=== PATIENT | female | born 1980 | race Caucasian/White ===

== ENCOUNTER 2016-11-24 12:16 | Emergency (ER) | payer MEDICAID ==
[~2016-11-24] VITALS: Ht 160 cm; Wt 52.0 kg
[~2016-11-24 12:16] MED LIST: AMOX1TAB12 PO; AMOX875T2 PO; DOCU-243 PO; DULO60CA7 PO; FLUO60TA PO; FLX20C PO; HSCO125 SL; HYDR-3702 PO; HYDR1KIT RC; IBP200T PO; LD2VS20U MT; MAGN400O7 PO; METH10TA5 PO; OXYC1TAB87 PO; PANT40TA3 PO; PRED20TA PO
[2016-11-24] MEDS ORDERED: KETOROLAC 30 MG/ML (TORADOL) 1 ML VIAL IV ONE (12:50)
[2016-11-24] MEDS ORDERED: SODIUM CHLORIDE FLUSH 3 ML SYR IV ONE (12:50)
[2016-11-24] MEDS ORDERED: ONDANSETRON 2 MG/ML (Z0FRAN) 2 ML VIAL IV ONE (12:50)
[2016-11-24] MEDS ORDERED: SODIUM CHLORIDE FLUSH 10 ML SYR IV PRN (12:50)
[2016-11-24] MEDS ORDERED: HYDROmorphone 1 MG/ML (DILAUDID) SYRINGE IV ONE ×2 (12:50→14:05)
[2016-11-24] MEDS ORDERED: NS IV 500 ML 500 ML IV SCH (12:50)
[2016-11-24 13:06] LABS: BASOPHILS % (AUTO) 1 % (0-2); EOSINOPHILS # (AUTO) 0.1 10^3uL; EOSINOPHILS % (AUTO) 1 % (0-4); LYMPHOCYTES # (AUTO) 1.2 X10^3; MEAN CORPUSCULAR HEMOGLOBIN 29.6 PG (26.0-34.0); MEAN CORPUSCULAR HGB CONC 35.4 g/dL (31.0-37.0); MEAN CORPUSCULAR VOLUME 84 FL (80-100); MEAN PLATELET VOLUME 12.2 FL (6.0-9.5); MONOCYTES # (AUTO) 0.7 X10^3; MONOCYTES % (AUTO) 12 % (3-11); NEUTROPHILS % (AUTO) 67 % (51-67); PLATELET COUNT 191 10^3uL (150-450); WHITE BLOOD COUNT 5.99 10^3uL (4.0-11.0)
[2016-11-24 13:08] LABS: BILIRUBIN,URINE Negative (Negative); CLARITY,URINE Clear; COLOR,URINE Yellow; GLUCOSE, URINE (UA) Negative (Negative); LEUKOCYTE ESTERASE ,URINE Negative (Negative); UROBILINOGEN,URINE 0.2 mg/dL (0.2-1.0)
[2016-11-24 13:16] LABS: ALBUMIN 4.5 g/dL (3.4-5.0); ANION GAP 14.8 MEQ/L (3-15)
[2016-11-24 13:18] LABS: AMPHETAMINE SCREEN, URINE Negative (Negative); CANNABINOID SCREEN, URINE Negative (Negative); METHAMPHETAMINE SCREEN URINE S NEGATIVE (NEGATIVE); OPIATE SCREEN URINE Negative (Negative); PROPOXYPHENE STAT NEGATIVE (NEGATIVE)
--- NOTE | 2016-11-24 13:54 | NUR ---
DR CASEY PAGES & NOW TALKS WITH DR Hermelinda SOTO RE PT. CL
--- NOTE | 2016-11-24 14:05 | NUR ---
written order for outpt HIDA scan given to Deyanira, snow maker.
--- NOTE | 2016-11-24 14:06 | Diagnostic Imaging Report ---
INDICATION: Abdominal pain. COMPARISON: Chest x-ray of 08/05/2016. FINDINGS: The lungs are clear. The heart and vessels are normal. There is no effusion or pneumothorax. Supine and upright abdominal films reveal normal bowel caliber. No free air or pneumatosis. No air/fluid levels. Colonic fecal loading is not pathologic. IMPRESSION: No acute appearing abnormality. Dictated by: Dictated on workstation # [id number]
[2016-11-24] MEDS ORDERED: ONDA4TAB8 PO (14:09)
[2016-11-24] MEDS ORDERED: HYDR-3702 PO (14:09)
--- NOTE | 2016-11-24 14:15 | NUR ---
HUSB BACK AT BEDSIDE. CL
[2016-11-24 18:06] VITALS: BP 100/67
[2016-12-20] MEDS ORDERED: CPR500T PO (18:36)
[2016-12-20] MEDS ORDERED: METH5TAB5 PO (18:36)
[2016-12-20] MEDS ORDERED: METR500T17 PO (18:36)
[2017-02-18] MEDS ORDERED: LORA10TA7 PO (17:34)
[2017-02-18] MEDS ORDERED: AMOX875T2 PO (17:34)
== END 2016-11-24 14:43 | disposition home or self-care (01) ==
LOC: ED 12:17
DX: R10.84 Generalized abdominal pain (principal)
CPT/HCPCS: 36415; 74022; 80053; 81003; 82150; 82977; 83690; 85025; 96361; 96374; 96375; 96376; 99283; G0478; J1170; J1885; J2405; J7040; 80307

== ENCOUNTER → 2016-11-25 | Outpatient (CLI) | payer MEDICAID ==
[~2016-11-25] MED LIST changes: +CPR500T PO; +LORA10TA7 PO; +METH5TAB5 PO; +METR500T17 PO; +ONDA4TAB8 PO
--- NOTE | 2016-11-25 10:51 | Diagnostic Imaging Report ---
INDICATION: Biliary colic with nausea and abdominal pain. FINDINGS: The patient was administered 7.9 mCi of Tc 99m Choletec and sequential imaging was performed over the right upper abdomen. There is progressive, homogeneous accumulation of radiotracer within the liver parenchyma. There is filling of the bile ducts and subsequent filling of the gallbladder. There is progressive clearance of activity from the liver parenchyma and accumulation of radiotracer within loops of small bowel. The patient was then administered a fatty meal, utilizing 8 ounces of Ensure. The gallbladder ejection fraction was calculated to be approximately 59%. (Normal values with Ensure are 33% or greater.) IMPRESSION: 1. Hepatobiliary scan demonstrates a patent biliary tree. 2. Normal gallbladder ejection fraction of approximately 59%. Dictated by: Dictated on workstation # [id number]
== END ==
LOC: RAD 07:38
PROVIDERS: ATTEND Family Medicine
DX: K80.50 Calculus of bile duct without cholangitis or cholecystitis without obstruction (principal)
CPT/HCPCS: 78227; A9537; J2805

== ENCOUNTER → 2016-12-08 | Outpatient (CLI) | payer MEDICAID ==
--- NOTE | 2016-12-08 11:30 | Diagnostic Imaging Report ---
CLINICAL INDICATION: Patient has a history of abdominal pain. Nondiabetic. COMPARISON: None. PROCEDURE: Solid Gastric emptying study. TECHNIQUE: After oral ingestion of 1.2 millicuries of technetium 99M sulfur colloid, mixed with two scrambled eggs, sequential imaging of the abdomen was performed. Computer analysis was performed and gastric emptying curves were calculated. FINDINGS: There is gastric emptying demonstrated with sequential imaging. The T 1/2 life is 70 minutes (Normal T1/2 life is 60-90 minutes) which is within normal limits. Of note, 4 hour imaging with radiotracer gastric retention values at one hour time points was not performed on this exam. The 90 minute percent gastric retention of radiotracer was roughly 40%. IMPRESSION: Normal gastric emptying study. Dictated by: Dictated on workstation # [id number]
== END ==
LOC: RAD 08:00
PROVIDERS: ATTEND Internal Medicine Gastroenterology
DX: R10.9 Unspecified abdominal pain (principal)
CPT/HCPCS: 78264; A9541

== ENCOUNTER 2016-12-20 18:00 | Emergency (ER) | payer MEDICAID ==
[~2016-12-20] VITALS: Ht 160 cm; Wt 54.6 kg
[2016-12-20] MEDS ORDERED: SODIUM CHLORIDE FLUSH 10 ML SYR IV PRN (18:45)
[2016-12-20] MEDS ORDERED: KETOROLAC 30 MG/ML (TORADOL) 1 ML VIAL IV ONE (18:45)
[2016-12-20] MEDS ORDERED: ONDANSETRON 2 MG/ML (Z0FRAN) 2 ML VIAL IV ONE (18:45)
[2016-12-20] MEDS ORDERED: SODIUM CHLORIDE FLUSH 3 ML SYR IV ONE (18:45)
[2016-12-20] MEDS ORDERED: HYDROmorphone 1 MG/ML (DILAUDID) SYRINGE IV ONE (18:45)
[2016-12-20 18:57] LABS: BILIRUBIN,URINE Negative (Negative); CLARITY,URINE Clear; COLOR,URINE Yellow; GLUCOSE, URINE (UA) Negative (Negative); LEUKOCYTE ESTERASE ,URINE Negative (Negative); UROBILINOGEN,URINE 0.2 mg/dL (0.2-1.0)
[2016-12-20 18:57] LABS: BASOPHILS % (AUTO) 1 % (0-2); EOSINOPHILS # (AUTO) 0.1 10^3uL; EOSINOPHILS % (AUTO) 2 % (0-4); LYMPHOCYTES # (AUTO) 2.2 X10^3; MEAN CORPUSCULAR HEMOGLOBIN 29.1 PG (26.0-34.0); MEAN CORPUSCULAR HGB CONC 35.2 g/dL (31.0-37.0); MEAN CORPUSCULAR VOLUME 83 FL (80-100); MEAN PLATELET VOLUME 12.6 FL (6.0-9.5); MONOCYTES # (AUTO) 0.7 X10^3; MONOCYTES % (AUTO) 8 % (3-11); NEUTROPHILS # (AUTO) 4.9 X10^3; NEUTROPHILS % (AUTO) 62 % (51-67); PLATELET COUNT 199 10^3uL (150-450)
[2016-12-20 19:08] LABS: ALBUMIN 4.3 g/dL (3.4-5.0); ANION GAP 12.3 MEQ/L (3-15); CALCULATED IONIZED CALCIUM 4.2 mg/dL (3.8-4.6); TOTAL PROTEIN 7.1 g/dL (6.4-8.5)
[2016-12-20 20:25] VITALS: BP 105/65
== END 2016-12-20 20:26 | disposition home or self-care (01) ==
LOC: ED 18:01
DX: R10.84 Generalized abdominal pain (principal)
CPT/HCPCS: 36415; 74177; 80053; 81003; 82150; 83690; 85025; 86140; 96361; 96374; 96375; 99284; J1170; J1885; J2405; J7030; Q9967; 99283

== ENCOUNTER 2016-12-24 21:24 | Emergency (ER) | payer MEDICAID ==
[~2016-12-24] VITALS: Ht 160 cm; Wt 55.3 kg
[2016-12-24] MEDS ORDERED: SODIUM CHLORIDE FLUSH 3 ML SYR IV PRN (22:55)
[2016-12-24] MEDS ORDERED: SODIUM CHLORIDE FLUSH 10 ML SYR IV PRN (22:55)
[2016-12-24] MEDS ORDERED: ONDANSETRON 2 MG/ML (Z0FRAN) 2 ML VIAL IV ONE (22:55)
[2016-12-24] MEDS ORDERED: HYDROmorphone 1 MG/ML (DILAUDID) SYRINGE IV PRN (22:55)
[2016-12-24 23:07] LABS: BASOPHILS % (AUTO) 0 % (0-2); EOSINOPHILS # (AUTO) 0.2 10^3uL; EOSINOPHILS % (AUTO) 2 % (0-4); LYMPHOCYTES # (AUTO) 2.7 X10^3; MEAN CORPUSCULAR HEMOGLOBIN 29.4 PG (26.0-34.0); MEAN CORPUSCULAR VOLUME 83 FL (80-100); MEAN PLATELET VOLUME 13.2 FL (6.0-9.5); MONOCYTES # (AUTO) 0.7 X10^3; MONOCYTES % (AUTO) 8 % (3-11); NEUTROPHILS # (AUTO) 6.1 X10^3; NEUTROPHILS % (AUTO) 63 % (51-67); PLATELET COUNT 212 10^3uL (150-450); WHITE BLOOD COUNT 9.68 10^3uL (4.0-11.0)
[2016-12-24 23:10] LABS: ALBUMIN 4.8 g/dL (3.4-5.0); ANION GAP 16.9 MEQ/L (3-15); CALCULATED IONIZED CALCIUM 4.1 mg/dL (3.8-4.6); TOTAL PROTEIN 7.8 g/dL (6.4-8.5)
[2016-12-24 23:14] LABS: MEAN CORPUSCULAR HGB CONC 35.5 g/dL (31.0-37.0)
--- NOTE | 2016-12-24 23:40 | NUR ---
PT FELT READY TO BE DISCHARGED.
[2016-12-25] VITALS: BP 105/67
== END 2016-12-24 23:50 | disposition home or self-care (01) ==
LOC: ED 21:25
DX: R10.13 Epigastric pain (principal)
CPT/HCPCS: 36415; 80053; 82150; 83690; 85025; 96374; 96375; 99285; J1170; J2405; 99282

== ENCOUNTER → 2017-02-18 | Outpatient (CLI) | payer MEDICAID ==
[2017-02-18 17:35] VITALS: BP 105/64
--- NOTE | 2017-02-18 17:35 | Urgent Care T Sheet Gen (E) ---
Intake General Temperature (Fahrenheit): 98.2 Pulse: 74 Blood Pressure Systolic: 105 Blood Pressure Diastolic: 64 Respirations: 16 SPO2: 99 Chief Complaint: Sore throat Description of Symptoms Complains of sore throat and bilateral ear pain- popping and cracking, feels tired all the time, alot of fatigue. No vomiting, no rashes, hasn't had a physical in a long time, Hysterectomy in 2015- partial, she would like labs done Source: Patient History of Present Illness Onset & Duration: Days Timing: Still present Severity: Mild Associated Symptoms: Cough, Malaise, Nasal congestion, Sinus congestion Recent Trauma: No Allergies: Coded Allergies: chlorhexidine (Verified Allergy, Unknown, 12/24/16) meperidine (Verified Allergy, Unknown, Anger, confusion, 12/24/16) Home Meds Active Scripts Hydrocodone/Acetaminophen ([place] 5mg/325mg)1 Each Tablet1-2 Tab PO Q6H PRN PAIN #30 TAB Ref 0 Prov:JACINTOPEYTON Milagro DO 11/24/16 Reported Medications Ciprofloxacin HCl (Cipro)500 Mg Tablet1 Tab PO BID 12/20/16 Metronidazole (Flagyl)500 Mg Tab1 Tab PO BID 12/20/16 Methimazole 5 Mg Tablet1 Tab PO QID 12/20/16 Fluoxetine HCl 60 Mg Tablet1 Tab PO DAILY #30 11/16/16 Respiratory Constitutional Symptoms: Fever EENTM: Ear pain Nose Congestion Throat pain Respiratory: Cough Cardiovascular: No symptoms reported Gastrointestinal/Abdominal: No symptoms reported Genitourinary: No symptoms reported All Other Systems Reviewed Remaining Systems: All other systems reviewed with negative findings Past Tronxrw-Iebygm-Vzozbl Hx Patient's Social History Alcohol Use: Occasionally Uses Smoking Status: Current every day smoker Recent foreign travel: No Surgeries/Hospitalizations Hospitalization/Surgery Hx: APPENDECTOMY, TUBAL LIGATION, HYSTERECTOMY, LT SHOULDER Respiratory Respiratory History: None Cardiovascular Cardiovascular History: Murmurs, Palpitations Comment: Heart cath in 2009-normal Neuro/Muscular Neuro/Muscular History: None Reproductive System Sexually Transmitted Diseases: No Genitouinary Genitourinary History: Bladder Infection Gastrointestinal GI/Endocrine History: Thyroid disorder, Anemia, Ulcer, Abdominal pain, GERD, Constipation, Hemorrhoids Comment: Hyperthyroidism Diabetes Diabetes: No HEENT Impaired Vision: Glasses Hearing Impaired: None Integumentary Integumentary History: None Cancer History of Cancer?: No Psychosocial Behavior Disorders: Depression Physical Exam Physical Exam General Appearance: WD/WN No apparent distress Eyes, Ears, Nose, Throat Ex: PERRL/EOMI TM abnormal (R) (dull fluid) TM abnormal (L) (dull fluid) Pharyngeal erythema Neck Exam: Full range of motion Supple Normal inspection Normal thyroidNo Lymphadenopathy Respiratory Exam: Lungs clear Normal breath sounds No respiratory distress No accessory muscles usedNo Accessory muscle use, No Wheezes Cardiovascular Exam: Regular rate, rhythm GI/ Exam: Non tender No organomegaly Normal bowel sounds Skin Exam: Normal color Warm/dry/intact No rashes Neurologic/Psychiatric Exam: Oriented times 4 Progress/Orders Lab Results Labs Results: Rapid Strep (negative) Departure Urgent Care Impression Chief Complaint: Sore throat Impression: Primary Impression: Pharyngitis Qualified Code: J02.9 - Acute pharyngitis, unspecified Additional Impression: Otalgia of both ears Departure Disposition: 20 Condition: Stable Referrals: JOSELITO SOTO MD (PCP) Additional Instructions: Long talk with her- will treat due to exposure and symptoms and findings rest hydrate change tooth brush in 48 hours f/u PCP as needed will also check lab for her- CBC CMP TSH LIPID panel- she will do this some time next week. She agrees to plan of care. Scripts Loratadine 10 Mg [id number] Mg PO DAILY #30 TAB Prov:LAURA REYES APRN () 02/18/17 Amoxicillin 875 Mg [id number] Mg PO BID #20 TAB Ref 0 Prov:LAURA REYES APRN () 02/18/17 End of report . LAURA REYES APRN () Feb 18, 2017 17:35
== END ==
LOC: MHUC 16:51
PROVIDERS: ATTEND Physician Assistant
DX: J02.9 Acute pharyngitis, unspecified (principal); H92.03 Otalgia, bilateral
CPT/HCPCS: 87880; 99213

== ENCOUNTER → 2017-02-24 | Outpatient (CLI) | payer MEDICAID ==
[2017-02-24 08:40] LABS: BASOPHILS % (AUTO) 1 % (0-2); EOSINOPHILS # (AUTO) 0.1 10^3uL; EOSINOPHILS % (AUTO) 2 % (0-4); LYMPHOCYTES # (AUTO) 1.8 X10^3; MEAN CORPUSCULAR HEMOGLOBIN 28.9 PG (26.0-34.0); MEAN CORPUSCULAR HGB CONC 34.2 g/dL (31.0-37.0); MEAN CORPUSCULAR VOLUME 85 FL (80-100); MEAN PLATELET VOLUME 11.9 FL (6.0-9.5); MONOCYTES # (AUTO) 0.6 X10^3; MONOCYTES % (AUTO) 8 % (3-11); NEUTROPHILS # (AUTO) 4.9 X10^3; NEUTROPHILS % (AUTO) 66 % (51-67); PLATELET COUNT 210 10^3uL (150-450); WHITE BLOOD COUNT 7.45 10^3uL (4.0-11.0)
[2017-02-24 09:25] LABS: ALBUMIN 4.1 g/dL (3.4-5.0); ANION GAP 14.9 MEQ/L (3-15); CALCULATED IONIZED CALCIUM 4.1 mg/dL (3.8-4.6); TOTAL PROTEIN 6.8 g/dL (6.4-8.5)
== END ==
LOC: LAB 08:09
PROVIDERS: ATTEND Nurse Practitioner
DX: R53.83 Other fatigue (principal); E03.9 Hypothyroidism, unspecified
CPT/HCPCS: 36415; 80053; 80061; 84443; 85025

== ENCOUNTER → 2017-03-15 | Outpatient (CLI) | payer MEDICAID ==
[~2017-03-15] MED LIST changes: +FLUT9.9S NSEACH; +METH4TAB27 PO
[2017-03-15 16:05] VITALS: BP 111/77
--- NOTE | 2017-03-15 16:05 | Urgent Care T Sheet Gen (E) ---
Intake General Temperature (Fahrenheit): 99.1 Pulse: 60 Blood Pressure Systolic: 111 Blood Pressure Diastolic: 77 Respirations: 18 SPO2: 99 Description of Symptoms Patient presents with L ear pain. Patient was seen last month with ear pain and nasal congestion. Patient states she has chronic ear pain and fluid in the ear. Was seen by an ENT years ago where they "tried to drain the fluid". Takes Claritin daily without relief. History of Present Illness Allergies: Coded Allergies: chlorhexidine (Verified Allergy, Unknown, 12/24/16) meperidine (Verified Allergy, Unknown, Anger, confusion, 12/24/16) Home Meds Active Scripts Fluticasone Propionate (Flonase Allergy Relief)9.9 Ml [place].susp1 Puff NSEACH DAILY #1 TUBE Prov:MICHAEL HILARIO 03/15/17 Methylprednisolone (Medrol Dosepack)21 Tab/Pkt Tablet6 Tab PO DAILY Inflammation #1 PKT Ref 0 6 tabs po on day 1 then decrease by 1 tab daily until packet is gone Prov:MICHAEL HILARIO 03/15/17 Loratadine 10 Mg [id number] Mg PO DAILY #30 TAB Prov:LAURA REYES APRN () 02/18/17 Amoxicillin 875 Mg [id number] Mg PO BID #20 TAB Ref 0 Prov:LAURA REYES APRN () 02/18/17 Hydrocodone/Acetaminophen ([place] 5mg/325mg)1 Each Tablet1-2 Tab PO Q6H PRN PAIN #30 TAB Ref 0 Prov:PEYTON CASEY DO 11/24/16 Reported Medications Ciprofloxacin HCl (Cipro)500 Mg Tablet1 Tab PO BID 12/20/16 Metronidazole (Flagyl)500 Mg Tab1 Tab PO BID 12/20/16 Methimazole 5 Mg Tablet1 Tab PO QID 12/20/16 Fluoxetine HCl 60 Mg Tablet1 Tab PO DAILY #30 11/16/16 Respiratory Constitutional Symptoms: No syptoms reported EENTM: Ear painNo Ear discharge, Nose Congestion Respiratory: No symptoms reported Cardiovascular: No symptoms reported All Other Systems Reviewed Remaining Systems: All other systems reviewed with negative findings Past Cpllfjj-Hkwcgc-Yxeufx Hx Patient's Social History Alcohol Use: Occasionally Uses Smoking Status: Current every day smoker Recent foreign travel: No Surgeries/Hospitalizations Hospitalization/Surgery Hx: APPENDECTOMY, TUBAL LIGATION, HYSTERECTOMY, LT SHOULDER Respiratory Respiratory History: None Cardiovascular Cardiovascular History: Murmurs, Palpitations Comment: Heart cath in 2010-normal Neuro/Muscular Neuro/Muscular History: None Reproductive System Sexually Transmitted Diseases: No Genitouinary Genitourinary History: Bladder Infection Gastrointestinal GI/Endocrine History: Thyroid disorder, Anemia, Ulcer, Abdominal pain, GERD, Constipation, Hemorrhoids Comment: Hyperthyroidism Diabetes Diabetes: No HEENT Impaired Vision: Glasses Hearing Impaired: None Integumentary Integumentary History: None Cancer History of Cancer?: No Psychosocial Behavior Disorders: Depression Physical Exam Physical Exam General Appearance: WD/WN No apparent distress Eyes, Ears, Nose, Throat Ex: Pharynx normal TM abnormal (L) (air fluid bubbles with bulging but no redness.) Other (pale nasal turbinates with clear drainage) Neck Exam: SuppleNo Lymphadenopathy Respiratory Exam: Lungs clear Normal breath sounds Cardiovascular Exam: Regular rate, rhythm Departure Urgent Care Impression Impression: Primary Impression: Eustachian tube dysfunction Qualified Code: H69.82 - Other specified disorders of Eustachian tube, left ear Additional Impressions: Left ear pain Seasonal allergies Qualified Code: J30.2 - Other seasonal allergic rhinitis Departure Disposition: HOME OR SELF-CARE Condition: Stable Referrals: JOSELITO SOTO MD (PCP) Additional Instructions: In addition to the Claritin, I have started the patient on Flonase daily I have also prescribed a Medrol dose pack. Patient has seen Dr Coronado in the past. I have sent records to their office and have requested a f/u appt regarding the chronic L ear pain Return as needed No NSAIDs while on steroid. Tylenol as needed for pain Patient understands DC instructions. All questions were answered. Scripts Fluticasone Propionate (Flonase Allergy Relief)9.9 Ml [place].susp1 Puff NSEACH DAILY #1 TUBE Prov:MICHAEL HILARIO 03/15/17 Methylprednisolone (Medrol Dosepack)21 Tab/Pkt Tablet6 Tab PO DAILY Inflammation #1 PKT Ref 0 6 tabs po on day 1 then decrease by 1 tab daily until packet is gone Prov:MICHAEL HILARIO 03/15/17 End of report . MICHAEL HILARIO Mar 15, 2017 15:23
== END ==
LOC: MHUC 15:11
PROVIDERS: ATTEND Physician Assistant
DX: H69.82 Other specified disorders of Eustachian tube, left ear (principal); H92.02 Otalgia, left ear; J30.2 Other seasonal allergic rhinitis
CPT/HCPCS: 99213

== ENCOUNTER 2017-04-08 14:10 | Emergency (ER) | payer MEDICAID ==
[~2017-04-08] VITALS: Ht 160 cm; Wt 52.0 kg
[~2017-04-08 14:10] MED LIST changes: +AMOX875T47 PO
[2017-04-08] MEDS ORDERED: FLUT16SP NS (14:20)
[2017-04-08] MEDS ORDERED: KETOROLAC 60 MG/2 ML (TORADOL) VIAL IM ONE (14:40)
[2017-04-08] MEDS ORDERED: HYDROcodone/APAP 5 MG/325 MG (NORCO) TAB PO ONE (15:20)
--- NOTE | 2017-04-08 15:32 | Diagnostic Imaging Report ---
INDICATION: Sinus pain and headache for one month. COMPARISON STUDY: None. FINDINGS: Noncontrast CT scan of the head demonstrates no mass effect, midline shift, hemorrhage or extra-axial fluid collections. Drake-white matter differentiation is normal. Ventricles, cortical sulci and basilar cisterns appear normal. There is normal appearance of the osseous structures. CT scan of the paranasal sinuses demonstrates normal aeration of the paranasal sinuses and mastoid air cells. No osseous destruction is present. Moderate to severe nasal turbinate congestion is present. IMPRESSION: 1. Normal intracranial contents. 2. Nasal turbinate congestion. 3. Normal paranasal sinuses. Dictated by: Dictated on workstation # [id number]
--- NOTE | 2017-04-08 15:35 | NUR ---
Patient report received from Delmis Trinh RN. Care of this patient now assumed by this nurse.
--- NOTE | 2017-04-08 15:44 | NUR ---
Patient resting on ER cart in darkened room. Awake and oriented. Reports headache rated at "6-7" and that she has "mild" nausea. Dr. Atkinson has been in room to discuss Rad findings and proposed plan of care. Pt reports she has medication at home for relief of nausea.
[2017-04-08] MEDS ORDERED: BUTA1CAP42 PO (15:45)
[2017-04-08 15:57] VITALS: BP 104/64
== END 2017-04-08 15:55 | disposition home or self-care (01) ==
LOC: ED 14:13
DX: H93.19 Tinnitus, unspecified ear (principal); R51 Headache
CPT/HCPCS: 70450; 70486; 96372; 99282; A9270; J1885; 99283

== ENCOUNTER → 2017-04-15 | Outpatient (CLI) | payer MEDICAID ==
[~2017-04-15] MED LIST changes: +BUTA1CAP42 PO; +FLUT16SP NS
--- NOTE | 2017-04-15 15:42 | Diagnostic Imaging Report ---
EXAMINATION: MRI of the brain with and without contrast dated 04/15/2017. TECHNIQUE: Multiplanar, multisequence MR imaging of the brain was performed with and without contrast. INDICATION: Chronic left otalgia, chronic left ear pain, dizziness, and headaches, no known injuries. Correlation made to CT of the brain and sinuses from 04/08/2017. FINDINGS: There is no restricted diffusion. No acute hemorrhage or infarcts appreciated. No mass, mass effect, or midline shift. Midline structures appear unremarkable. There are a few very tiny foci of hyperintensity towards the vertex on the left in the parietal lobe only seen on the FLAIR sequence and possibly due to small vessel ischemic disease. A similar finding is noted in the anterior aspect of the left frontoparietal region towards the vertex as well. There is no associated enhancement on post contrast imaging. Post contrast imaging is unremarkable. The IACs are bilaterally symmetric and unremarkable. Visualized paranasal sinuses demonstrate no evidence for acute disease. The visualized mastoid air cells demonstrate very minimal partial opacification of the anterior left mastoid air cells, nonspecific. The remaining mastoid air cells are bilaterally symmetric and unremarkable. IMPRESSION: 1. No acute intracranial process. 2. Possible tiny foci of chronic ischemic disease described above on the left. 3. Minimal partial opacification of the left mastoid air cells with otherwise negative appearance of the IAC region. Dictated on workstation # [id number]
== END ==
LOC: RAD 11:27
PROVIDERS: ATTEND Specialist
DX: H92.02 Otalgia, left ear (principal); G89.29 Other chronic pain
CPT/HCPCS: 70553; A9579